=== PATIENT | male | born 1955 | race Caucasian/White ===

== ENCOUNTER 2018-09-02 21:47 | Inpatient (IN) | payer MEDICARE, OTHER | END 2018-09-14 19:20 | disposition home or self-care (01) | LOC: PCU 3S 09-08 17:55 → ER 21:47 → CICU 2S 09-07 15:29 → SUR 3N 09-03 05:26 | DX: A41.9 Sepsis, unspecified organism (principal); J18.9 Pneumonia, unspecified organism; J96.00 Acute respiratory failure, unspecified whether with hypoxia or hypercapnia; N17.0 Acute kidney failure with tubular necrosis; L03.115 Cellulitis of right lower limb; E87.2 Acidosis; N18.9 Chronic kidney disease, unspecified; E11.22 Type 2 diabetes mellitus with diabetic chronic kidney disease; E11.628 Type 2 diabetes mellitus with other skin complications; E11.65 Type 2 diabetes mellitus with hyperglycemia ==

== ENCOUNTER 2019-12-13 11:18 | Day surgery (SDC) | payer MEDICARE, OTHER ==
[2019-12-06 12:56] LABS: BASOPHILS # (AUTO) 0.1 X10'3 (0-0.2); EOSINOPHILS # (AUTO) 0.3 X10'3 (0-0.9); EOSINOPHILS % (AUTO) 4.8 % (0-6); LYMPHOCYTES # (AUTO) 1.3 X10'3 (1.1-4.8); LYMPHOCYTES % (AUTO) 23.1 % (21-51); MEAN CORPUSCULAR HEMOGLOBIN 31.4 PG (27.0-31.0); MEAN CORPUSCULAR HGB CONC 32.9 g/dL (33.0-36.5); MEAN CORPUSCULAR VOLUME 95.4 FL (78-98); MEAN PLATELET VOLUME 8.4 FL (7.4-10.4); MONOCYTES # (AUTO) 0.5 X10'3 (0-0.9); NEUTROPHILS # (AUTO) 3.5 X10'3 (1.8-7.7); NEUTROPHILS % (AUTO) 62.1 % (42-75); PRE OP HEMATOCRIT 38.7 % (42.0-52.0); PRE OP HEMOGLOBIN 12.7 g/dL (14.0-17.9); PRE OP PLATELET COUNT 169 X10'3 (140-440); RED BLOOD COUNT 4.05 X10'6 (4.70-6.10); RED CELL DISTRIBUTION WIDTH 13.5 % (11.5-14.5)
[2019-12-06 13:08] LABS: ALBUMIN 3.6 G/DL (3.4-5.0); ALBUMIN/GLOBULIN RATIO 0.8 (1.1-1.5); ALKALINE PHOSPHATASE 83 IU/L (46-116); BLOOD UREA NITROGEN 61 MG/DL (7-18); BUN/CREATININE RATIO 6.9 (5.4-32.0); CALCIUM 9.2 MG/DL (8.5-10.1); CHLORIDE 95 MMOL/L (99-107); CREATININE 8.89 MG/DL (0.60-1.10); PRE OP ALT 28 U/L (30-65); PRE OP ANION GAP 12 (8-16); PRE OP AST 19 U/L (10-37); PRE OP BILIRUB, TOTAL 0.4 MG/DL (0.0-1.0); PRE OP GLUCOSE 185 MG/DL (70-104); PRE OP POTASSIUM 4.6 MMOL/L (3.4-5.1); PRE OP SODIUM 134 MMOL/L (135-145); TOTAL CARBON DIOXIDE 26.6 MMOL/L (24-32); TOTAL PROTEIN 8.4 G/DL (6.4-8.2); eGFR 6 ML/MIN
[2019-12-06 13:12] LABS: HEMOGLOBIN A1C 8.7 % (4.5-6.2)
[2019-12-06 13:58] LABS: CLARITY,URINE SLIGHTLY CLOUDY (Clear); COLOR,URINE YELLOW (Yellow); GLUCOSE, URINE 500 mg/dl (Neg); KETONES,URINE NEGATIVE (Neg); LEUKOCYTE ESTERASE ,URINE NEGATIVE (Neg); NITRITES, URINE NEGATIVE (Neg); OCCULT BLOOD,URINE MODERATE (Neg); PROTEIN,URINE >=300 mg/dl (Neg); UROBILINOGEN,URINE 0.2 E.U/dL (0.2-1.0)
[2019-12-06 13:59] LABS: UA COLLECTION TYPE NON-SPECIFIED
[2019-12-06 14:07] LABS: BACTERIA,URINE NONE SEEN /HPF (Neg); MUCUS STRANDS FEW /LPF (Neg); RBC,URINE 0-2 /HPF (0-2); SQUAMOUS EPITHELIAL CELL,UR NONE SEEN /LPF (FEW); WBC,URINE 0-4 /HPF (0-4)
[2019-12-13] VITALS (13 sets, daily range): BP systolic 128–160; BP diastolic 67–84
[~2019-12-13] VITALS: Ht 182.9 cm; Wt 90.7 kg
[~2019-12-13 11:18] MED LIST: AMA1T PO; AMIT-1 PO; ATEN-169 PO; DOCUMENT DATE & TIME OF BETA-BLOCKER PO ONE; FOLI1TAB34 PO; GABA-532 PO; INSU100V9 SQ; INSU10VI SQ; LISI-600 PO; PHO667C PO; ceFAZolin 2gm in dextrose, iso 50 ML IV ONE; famotidine 20mg tablet PO ONE; ringers solution, lacted 1,000 ML IV SCH
[2019-12-13] MEDS ORDERED: propofol inj 20 ML IV ONE (12:35)
[2019-12-13] MEDS ORDERED: midazolam 2 mg/2 ml injection ONE (12:35)
[2019-12-13] MEDS ORDERED: fentaNYL/PF 50MCG/1 ML 2ML syringe ONE (12:35)
[2019-12-13] MEDS ORDERED: ringers solution, lacted 1,000 ML IV SCH (12:42)
[2019-12-13] MEDS ORDERED: ondansetron/PF 4mg/2ml inj IV PRN (12:45)
[2019-12-13] MEDS ORDERED: morphine 4 MG/ML inj SYRINge IV PRN (12:45)
[2019-12-13] MEDS ORDERED: proCHLORperazine 10 MG/2 ml inj IV PRN (12:45)
[2019-12-13] MEDS ORDERED: morphine 2 MG/ML inj. syringe IV PRN (12:45)
[2019-12-13] MEDS ORDERED: meperidine/PF 25mg/ml syringe IV PRN ×3 (12:45)
[2019-12-13] MEDS ORDERED: insulin regular, human U-100 3ml vial - multi-dose ONE (12:48)
[2019-12-13] MEDS ORDERED: BUPIVAcaine/PF 2.5 mg/ml (0.25%) 30ml vial ONE (13:20)
--- NOTE | 2019-12-13 14:00 | NUR ---
Received from OR via [facility], accompanied by Anesthesiologist DR HENDERSON and report given by Anesthesiologist. PT DROWSY, DENIES PAIN, RIGHT FOOT W/JOHNNY WRAP COVERING INCISION/DRSG CDI FROM ANKLE AND COVERING ENTIRE FOOT/STUMP. Addendum: 12/13/19 at 1435 by Fely Fernandez RN Amended: Links added. Addendum: 12/13/19 at 1443 by Fely Fernandez RN LATE NOTE, BS [phone] DR HENDERSON AWARE, NO ORDERS.
== END 2019-12-13 16:20 | disposition home or self-care (01) ==
LOC: PAS 11:18
PROVIDERS: ATTEND Podiatrist Foot & Ankle Surgery
DX: E11.69 Type 2 diabetes mellitus with other specified complication (principal); M86.8X7 Other osteomyelitis, ankle and foot; E11.621 Type 2 diabetes mellitus with foot ulcer; I10 Essential (primary) hypertension; N19 Unspecified kidney failure; Z99.2 Dependence on renal dialysis; Z86.14 Personal history of Methicillin resistant Staphylococcus aureus infection; Z98.890 Other specified postprocedural states; Z11.59 Encounter for screening for other viral diseases; Z79.4 Long term (current) use of insulin; Z79.899 Other long term (current) drug therapy
CPT/HCPCS: 28805; 36415; 80053; 81001; 82948; 83036; 85025; 93005; A6223; J2250; J2704; J3010; J3490; J7120; U0003; A4215; A4618; A6253; A6449; A7000; J1815

== ENCOUNTER 2021-03-09 12:00 | Outpatient (CLI) | payer MEDICARE, OTHER ==
[~2021-03-09 12:00] MED LIST changes: -DOCUMENT DATE & TIME OF BETA-BLOCKER PO ONE; -LISI-600 PO; +LISI20TA28 PO; -ceFAZolin 2gm in dextrose, iso 50 ML IV ONE; -famotidine 20mg tablet PO ONE; -ringers solution, lacted 1,000 ML IV SCH
== END 2021-03-09 23:59 | disposition home or self-care (01) ==
LOC: LAB 12:00
PROVIDERS: ATTEND Nurse Practitioner Family
DX: E87.5 Hyperkalemia (principal)
CPT/HCPCS: 36415; 84132

== ENCOUNTER 2023-02-15 09:05 | Day surgery (SDC) | payer MEDICARE, BC ==
[2023-02-08 12:06] LABS: BASOPHILS % (AUTO) 0.6 % (0-1); EOSINOPHILS # (AUTO) 0.2 X10'3 (0-0.9); EOSINOPHILS % (AUTO) 2.9 % (0-6); LYMPHOCYTES # (AUTO) 1.2 X10'3 (1.1-4.8); MEAN CORPUSCULAR HGB CONC 32.9 g/dL (33.0-36.5); MEAN CORPUSCULAR VOLUME 97.4 FL (78-98); MEAN PLATELET VOLUME 7.8 FL (7.4-10.4); MONOCYTES # (AUTO) 0.4 X10'3 (0-0.9); MONOCYTES % (AUTO) 7.2 % (2-12); NEUTROPHILS # (AUTO) 4.3 X10'3 (1.8-7.7); NEUTROPHILS % (AUTO) 70.3 % (42-75); PRE OP HEMATOCRIT 40.1 % (42.0-52.0); PRE OP HEMOGLOBIN 13.2 g/dL (14.0-17.9); PRE OP PLATELET COUNT 200 X10'3 (140-440); PRE OP WHITE BLOOD COUNT 6.2 10'3 (4.8-10.8); RED BLOOD COUNT 4.12 X10'6 (4.70-6.10)
[2023-02-08 12:23] LABS: ALBUMIN 3.7 G/DL (3.4-5.0); ALBUMIN/GLOBULIN RATIO 0.9 (1.1-1.5); ALKALINE PHOSPHATASE 114 IU/L (46-116); BLOOD UREA NITROGEN 45 MG/DL (7-18); CALCIUM 9.7 MG/DL (8.5-10.1); CHLORIDE 98 MMOL/L (99-107); CREATININE 8.97 MG/DL (0.60-1.10); PRE OP ALT 18 U/L (30-65); PRE OP ANION GAP 8 (8-16); PRE OP AST 12 U/L (10-37); PRE OP BILIRUB, TOTAL 0.3 MG/DL (0.0-1.0); PRE OP POTASSIUM 4.7 MMOL/L (3.4-5.1); PRE OP SODIUM 135 MMOL/L (135-145); TOTAL PROTEIN 7.6 G/DL (6.4-8.2); eGFR 6 ML/MIN
[2023-02-08 12:31] LABS: PRE OP GLUCOSE 254 MG/DL (70-104)
[2023-02-15] VITALS (11 sets, daily range): BP systolic 135–186; BP diastolic 62–96; PULSE 74–90; RESP 9–16; TEMP 98.2; O2SAT 92–100
[~2023-02-15] VITALS: Ht 177.8 cm; Wt 92.0 kg
[~2023-02-15 09:05] MED LIST changes: -AMA1T PO; -ATEN-169 PO; +ATOR20TA66 PO; -FOLI1TAB34 PO; -LISI20TA28 PO; +LOP25T PO; +SEMA0.258 SQ; +cefazolin 2gm/D5W 100mL 100 ML IV ONE; +famotidine 20mg tablet PO ONE; +normal saline 1000ml 1,000 ML IV SCH; +tranexamic acid 650mg tablet PO ONE
[2023-02-15] MEDS ORDERED: BUPIVAcaine/PF 2.5 mg/ml (0.25%) 30ml vial ONE (14:03)
[2023-02-15] MEDS ORDERED: ondansetron/PF 4mg/2ml inj IV PRN (14:05)
[2023-02-15] MEDS ORDERED: proCHLORperazine 10 MG/2 ml inj IV PRN (14:05)
[2023-02-15] MEDS ORDERED: hydrALAZINE 20mg/ml inj. IV PRN (14:05)
[2023-02-15] MEDS ORDERED: labetalol 20mg/4ml (5mg/ml) syringe IV PRN (14:05)
[2023-02-15] MEDS ORDERED: morphine 2 MG/ML inj. syringe IV PRN (14:05)
[2023-02-15] MEDS ORDERED: normal saline 1000ml 1,000 ML IV ONE (14:05)
[2023-02-15] MEDS ORDERED: HYDROmorphone/PF 0.2 MG/ML SYRINGE IV PRN (14:05)
[2023-02-15] MEDS ORDERED: acetaminophen 1,000mg/100ml IV 100 ML IV PRN (14:05)
[2023-02-15] MEDS ORDERED: fentaNYL/PF 50MCG/1 ML 2ML syringe ONE (14:06)
[2023-02-15] MEDS ORDERED: midazolam 1 mg/ML 2ml injection ONE (14:06)
[2023-02-15] MEDS ORDERED: sevoflurane 250ml liquid IH ONE (14:08)
[2023-02-15] MEDS ORDERED: dexamethasone sod phosphate 4mg/ml inj. ONE (14:27)
[2023-02-15] MEDS ORDERED: ondansetron/PF 4mg/2ml inj ONE (14:27)
[2023-02-15] MEDS ORDERED: neostigmine methylsulfate 1 MG/ML 10ml vial ONE ×2 (14:27→14:58)
[2023-02-15] MEDS ORDERED: propofol inj 20 ML IV ONE (14:28)
[2023-02-15] MEDS ORDERED: LIDOcaine 2% (20mg/ml) 5ml vial ONE (14:28)
[2023-02-15] MEDS ORDERED: rocuronium 10mg/ml inj IV ONE (14:28)
[2023-02-15] MEDS ORDERED: glycopyrrolate 0.2mg/ml inj ONE (14:58)
--- NOTE | 2023-02-15 15:06 | NUR ---
Received from OR via [facility] IN STABLE CONDITION , accompanied by Anesthesiologist and FARM MANAGEMENT SUPERVISOR report given by FARM MANAGEMENT SUPERVISOR AND Anesthesiolgist. Addendum: 02/15/23 at 1524 by Ilana Hutchins RN Amended: Links added.
[2023-02-15] MEDS ORDERED: heparin 10,000 units/1 ML INJ ONE (15:10)
[2023-02-15 16:01] LABS: ISTAT K 4.6 mmol/L (3.5-5.1)
[2023-02-15 16:02] LABS: ISTAT IONIZED CALCIUM 1.03 mmol/L (1.03-1.32); POC BUN/CREATININE RATIO 4.8 (5.4-32.0)
--- NOTE | 2023-02-15 16:36 | NUR ---
PATIENT DISCHARGED FROM PACU IN STABLE CONDITION AFTER WRITTEN AND VERBAL DISCHARGE INSTRUCTIONS GIVEN.. PATIENT GAVE VERBAL UNDERSTANDING OF INSTRUCTIONS GIVEN. PATIENT LEFT FACILITY VIA WHEELCHAIR WITH RN. Addendum: 02/15/23 at 1655 by Ilana Hutchins RN Amended: Links added.
== END 2023-02-15 16:36 | disposition home or self-care (01) ==
LOC: PRE-OP 09:05 → PAS 16:36
PROVIDERS: ATTEND Surgery
DX: E11.22 Type 2 diabetes mellitus with diabetic chronic kidney disease (principal); I12.0 Hypertensive chronic kidney disease with stage 5 chronic kidney disease or end stage renal disease; N18.6 End stage renal disease; E78.5 Hyperlipidemia, unspecified; Z88.5 Allergy status to narcotic agent; Z91.030 Bee allergy status; Z98.890 Other specified postprocedural states; Z87.01 Personal history of pneumonia (recurrent); Z87.891 Personal history of nicotine dependence; Z79.4 Long term (current) use of insulin; Z79.899 Other long term (current) drug therapy; Z86.14 Personal history of Methicillin resistant Staphylococcus aureus infection
CPT/HCPCS: 36415; 49324; 80047; 80053; 82948; 85025; 93005; C1750; J0690; J1100; J1644; J2250; J2405; J2704; J2710; J3010; J3490; J7030; J7040; Z7506; Z7512; A4215; A4618; A7000

== ENCOUNTER 2024-02-08 11:02 | Outpatient (CLI) | payer MEDICARE, BC ==
[~2024-02-08 11:02] MED LIST changes: -cefazolin 2gm/D5W 100mL 100 ML IV ONE; -famotidine 20mg tablet PO ONE; -normal saline 1000ml 1,000 ML IV SCH; -tranexamic acid 650mg tablet PO ONE
[2024-02-08 12:09] LABS: BASOPHILS % (AUTO) 1.2 % (0-1); EOSINOPHILS # (AUTO) 0.2 X10'3 (0-0.9); EOSINOPHILS % (AUTO) 5.5 % (0-6); HEMATOCRIT 33.8 % (42.0-52.0); HEMOGLOBIN 10.9 g/dl (14.0-17.9); LYMPHOCYTES % (AUTO) 28.5 % (21-51); MEAN CORPUSCULAR HEMOGLOBIN 32.3 PG (27.0-31.0); MEAN CORPUSCULAR HGB CONC 32.2 g/dL (33.0-36.5); MEAN CORPUSCULAR VOLUME 100.1 FL (78-98); MEAN PLATELET VOLUME 8.2 FL (7.4-10.4); MONOCYTES # (AUTO) 0.5 X10'3 (0-0.9); MONOCYTES % (AUTO) 14.2 % (2-12); NEUTROPHILS # (AUTO) 1.7 X10'3 (1.8-7.7); NEUTROPHILS % (AUTO) 50.6 % (42-75); PLATELET COUNT 159 X10'3 (140-440); RED BLOOD COUNT 3.37 X10'6 (4.70-6.10); RED CELL DISTRIBUTION WIDTH 16.4 % (11.5-14.5); WHITE BLOOD COUNT 3.4 X10'3 (4.5-11.0)
[2024-02-08 12:23] LABS: ALBUMIN 3.5 G/DL (3.4-5.0); ANION GAP 6 (8-16); APTT 24 SECONDS (22-32); BLOOD UREA NITROGEN 22 MG/DL (7-18); BUN/CREATININE RATIO 3.4 (10.0-20.0); CALCIUM 9.2 MG/DL (8.5-10.1); CHLORIDE 103 MMOL/L (99-107); CHOL/HDL RATIO 1.8 (0.00-4.99); CHOLESTEROL 85 MG/DL (0-200); GLUCOSE 89 MG/DL (70-104); HDL CHOLESTEROL 48 MG/DL (35-60); LDL CHOLESTEROL 34 MG/DL (50-100); POTASSIUM 4.1 MMOL/L (3.5-5.1); PROTHROMBIN TIME 10.9 SECONDS (9.0-12.0); SODIUM 143 MMOL/L (135-145); TOTAL CARBON DIOXIDE 33.8 MMOL/L (24-32); TRIGLYCERIDES 28 MG/DL (20-135); eGFR 9 ML/MIN
== END 2024-02-08 23:59 | disposition home or self-care (01) ==
LOC: LAB 11:02
PROVIDERS: ATTEND Internal Medicine Interventional Cardiology
DX: I12.0 Hypertensive chronic kidney disease with stage 5 chronic kidney disease or end stage renal disease (principal); I25.10 Atherosclerotic heart disease of native coronary artery without angina pectoris; E78.5 Hyperlipidemia, unspecified; N18.6 End stage renal disease
CPT/HCPCS: 36415; 80048; 80061; 85025; 85610; 85730